=== PATIENT | male | born 1960 | race Caucasian/White ===

== ENCOUNTER 2017-12-03 06:32 | Emergency (ER) | payer BC, OTHER ==
[2017-12-03 06:44] VITALS: BP 163/105; PULSE 78; TEMP 98.5; BMI 25.7
--- NOTE | 2017-12-03 06:52 | PDOC ---
History of Present Illness - General Chief Complaint: Pain, Acute Stated Complaint: BACK PAIN INTERMITTENT X 1 YEAR Time Seen by Provider: 12/03/17 06:38 - History of Present Illness Initial Comments: 12/03/17 06:52 This 57-year-old man who has not seen a doctor except for his "union doctor" in many years presents with intermittent lower back pain for approximately one year. 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 Yesterday, he felt more pain than usual in his lower back as well as increased pain in the right groin hernia that was diagnosed by his union doctor several years ago. He denies buttock or lower extremity pain/ numbness/paresthesias. He has had no lower extremity weakness. Patient only takes occasional Tylenol for his pain and has not taken any pain medications since last week. He denies groin numbness/difficulty with urination or defecation. He has never seen any doctor specifically for his back pain. Medications/PMH: As above Patient smokes 1-1-1/2 packs of cigarettes for the last 45 years; denies daily ethanol use, states he occasionally for social drinking only. No recreational drug use Past History - Past Medical History Allergies/Adverse Reactions: Allergies Allergy/AdvReac Type Severity Reaction Status Date / Time No Known Allergies Allergy Verified 12/03/17 06:33 Home Medications: Ambulatory Orders NK [No Known Home Medication] 12/03/17 - Immunization History Td Vaccination: Yes Immunization Up to Date: No - Suicide/Smoking/Psychosocial Hx Smoking Status: No Smoking History: Current every day smoker Have you smoked in the past 12 months: Yes Number of Cigarettes Smoked Daily: 30 'Breaking Loose' booklet given: 07/20/15 Hx Alcohol Use: No Drug/Substance Use Hx: No Substance Use Type: Alcohol Review of Systems - Review of Systems Able to Perform ROS?: Yes Comments:: 12 point review of systems is negative except for what is noted in the history of present illness *Physical Exam - Physical Exam Comments: GENERAL: Adult male, alert and oriented 3, with resting and intention tremor;; 163/105 BP; heart rate 75 HEAD: Normal with no signs of trauma. EYES: PERRLA, EOMI, sclera anicteric, conjunctiva clear. ENT: Ears normal, nares patent, oropharynx clear without exudates. Moist mucous membranes. NECK: Normal range of motion, supple without lymphadenopathy, JVD, or masses. LUNGS: Breath sounds equal, clear to auscultation bilaterally. No wheezes, and no crackles. HEART:Regular rate and rhythm, normal S1 and S2 without murmur, rub or gallop. ABDOMEN:.normal bowel sounds No guarding or rebound.No masses No distention. Mild right groin tenderness without obvious masses or peritoneal signs EXTREMITIES: Normal range of motion, no edema. No clubbing or cyanosis. No erythema, or tenderness. NEUROLOGICAL: Cranial nerves II through XII grossly intact. Normal speech. No focal neurological deficits. MUSCULOSKELETAL: Back non-tender to palpation, no CVA tenderness; no straight leg raising pain bilaterally SKIN: Warm, Dry, normal turgor, no rashes or lesions noted. *DC/Admit/Observation/Transfer - Discharge Dispostion Condition at time of disposition: Stable - Referrals - Patient Instructions Printed Discharge Instructions: Smoking Cessation - Post Discharge Activity
[2017-12-03] MEDS ORDERED: KETOROLAC TROMETHAMINE 30 MG/1 ML VIAL IM ONE (07:36)
--- NOTE | 2017-12-03 07:36 | PDOC ---
*Physical Exam - Vital Signs Last Vital Signs Temp Pulse Resp BP Pulse Ox 98.5 F 78 18 163/105 100 12/03/17 06:38 12/03/17 06:38 12/03/17 06:38 12/03/17 06:38 12/03/17 06:38 - Physical Exam Comments: 12/03/17 07:26 "GENERAL: Awake, alert, and fully oriented, in no acute distress HEAD: No signs of trauma EYES: PERRLA, EOMI, sclera anicteric, conjunctiva clear ENT: Auricles normal inspection, hearing grossly normal, nares patent, oropharynx clear without exudates. Moist mucosa NECK: Nontender, no stepoffs, Normal ROM, supple, no lymphadenopathy, JVD, or masses LUNGS: Breath sounds equal, clear to auscultation bilaterally. No wheezes, and no crackles HEART: Regular rate and rhythm, normal S1 and S2, no murmurs, rubs or gallops ABDOMEN: + R inguinal mass, easily reducible, no abdominal tenderness. No guarding, no rebound. No masses EXTREMITIES: Normal range of motion, no edema. No clubbing or cyanosis. No cords, erythema, or tenderness NEUROLOGICAL: Cranial nerves II through XII intact. 5/5 strength and sensation in all extremities, Normal speech, normal gait, normal cerebellar function SKIN: Warm, Dry, normal turgor, no rashes or lesions noted. " ED Treatment Course - RADIOLOGY Radiology Studies Ordered: Category Date Time Status ABDOMEN & PELVIS CT W/O CONTR [CT] Stat CT Scan 12/03/17 07:23 Ordered Medical Decision Making - Medical Decision Making 12/03/17 07:26 Sign out taken from Dr. Cooley at 7am. Pt is 57 M who presents to ED with lower back pain and R groin pain s/p pushing a heavy object 2 days ago. Has had prior diagnosis of R inguinal hernia in the past. Pt states that the groin pain is worse with standing but relieved with lying down. At time of interview, he denies any abdominal pain. Pt denies N/V/ constipation. Had normal BM today. Denies F/C. On exam, pt has R inguinal hernia that is easily reducible. No signs of incarceration/strangulation. Will obtain CTAP non-con to evaluate and have pt f/u with surgeon. As for back pain, pt states it is similar to pain he has had in the past, but it was exacerbated by pushing 2 days ago. Denies leg weakness/numbness. Denies incontinence or saddle anesthesia. Pt has been ambulatory without assistance. Pt has no tenderness on exam, no neuro deficits. No signs of cauda equina or cord compression. - CTAP non-con - F/u surgery - F/u ortho spine 12/03/17 11:05 CT shows bilateral inguinal hernias containing only fat Pt also with small AAA. Pt informed of results, understands importance of follow up. Pt is well appearing, with normal vitals. Clinically stable for DC at this time. I discussed the physical exam findings, ancillary test results and final diagnoses with the patient. I answered all of the patient's questions. The patient was satisfied with the care received and felt comfortable with the discharge plan and treatment plan. The patient agrees to follow up with the primary care physician within 24-72 hours. *DC/Admit/Observation/Transfer Diagnosis at time of Disposition: Inguinal hernia, AAA (abdominal aortic aneurysm), Lower back pain - Discharge Dispostion Disposition: HOME Condition at time of disposition: Stable - Referrals Referrals: Yovany Dave MD [Staff Physician] - Erik Merritt MD [Staff Physician] - Jose Workman MD [Staff Physician] - - Patient Instructions Printed Discharge Instructions: High Blood Pressure, DI for Low Back Pain, Smoking Cessation Additional Instructions: You have a hernia. Follow up with a surgeon within 1 week for further evaluation. You may need to have surgery to repair the hernia if it continues to cause pain. Call the number provided to make an appointment with our surgeon. If you experience worsening or persistent pain, nausea, vomiting, severe constipation, or any other concerning symptoms, return to the ER immediately. Your CT scan today also showed you have a small aneurysm in your aorta. It is not life threatening at this time, but if it gets bigger, you may need surgery to repair it as it can rupture, which is a very dangerous condition. You need to follow up with your primary doctor to have this checked regularly. Follow up with a charge master specialist for further evaluation and treatment of your lower back pain. You may need physical therapy. Call the number provided to make an appointment with our charge master specialist. If you experience worsening back pain, numbness or weakness in your legs, difficulty walking, or any other concerning symptoms, return to the ER immediately. You also need to have your blood pressure re-checked by your primary doctor within 1-2 weeks, as it was slightly elevated today. If you have persistent high blood pressure that is not controlled with medications, you may develop heart or kidney disease or other serious illnesses, or even . If you do not have a primary care doctor to follow up with, call the number provided to make an appointment with our primary care doctor. - Post Discharge Activity Forms/Work/School Notes: Back to Work - Attestations Physician Attestion: 12/03/17 08:39 I, Dr. Curtis Martinez MD, attest that this document has been prepared under my direction and personally reviewed by me in its entirety. I further attest, that it accurately reflects all work, treatment, procedures and medical decision -making performed by me.
[2017-12-03] MEDS ORDERED: KETOROLAC TROMETHAMINE 30 MG/1 ML VIAL ONE (07:54)
== END 2017-12-03 11:40 | disposition home or self-care (01) ==
LOC: FER 06:32
PROC: 3E0233Z Introduction of Anti-inflammatory into Muscle, Percutaneous Approach (ICD-10-PCS; principal; 2017-12-03)
DX: K40.90 Unilateral inguinal hernia, without obstruction or gangrene, not specified as recurrent (principal); M54.5 Low back pain; I71.4 Abdominal aortic aneurysm, without rupture
CPT/HCPCS: 74176-TC; 99281-25

== ENCOUNTER 2024-11-12 08:32 | Emergency (ER) | payer BC ==
[2024-11-12 08:42] VITALS: BP 117/76; PULSE 87; RESP 18; TEMP 98.4; BMI 26.4
[2024-11-12 11:06] LABS: BASO % 0.9 % (0-2.0); EOS % 4.5 % (0-4.5); HEMATOCRIT 45.1 % (35.4-49); HEMOGLOBIN 15.4 GM/dL (11.7-16.9); LYMPH % 30.5 % (8-40); MCHC 34.1 g/dl (32.0-35.9); MEAN CELL VOLUME 96.9 fl (80-96); MEAN PLT VOLUME 7.5 fl (7.5-11.1); MONO % 6.8 % (3.8-10.2); NEUT % 57.3 % (42.8-82.8); PLATELET COUNT 161 10^3/uL (134-434); RBC 4.65 M/mm3 (4.00-5.60); RDW 13.2 % (11.9-15.9); WHITE BLOOD COUNT 4.3 K/mm3 (4.0-10.0)
[2024-11-12 11:31] LABS: POTASSIUM 4.3 mmol/L (3.5-5.1)
[2024-11-12 11:33] LABS: ALBUMIN 4.6 g/dl (3.4-5.0); BLOOD UREA NITROGEN 23.5 mg/dL (7-18); CALCIUM 9.6 mg/dL (8.5-10.1)
[2024-11-12 11:36] LABS: CREATININE 0.9 mg/dL (0.55-1.3)
[2024-11-12 11:38] LABS: BILIRUBIN,TOTAL 0.3 mg/dL (0.2-1); TOT PROT 8.7 g/dl (6.4-8.2)
== END 2024-11-12 13:35 | disposition home or self-care (01) ==
LOC: JERFT 08:32
DX: S22.42XA Multiple fractures of ribs, left side, initial encounter for closed fracture (principal); I71.40 Abdominal aortic aneurysm, without rupture, unspecified; M54.6 Pain in thoracic spine; W08.XXXA Fall from other furniture, initial encounter
CPT/HCPCS: 36415; 71250-TC; 71275-TC; 72128-TC; 74174-TC; 80053; 85025; 99285-25; Q9967